=== PATIENT | female | born 1980 | race Caucasian/White ===

== ENCOUNTER 2017-03-06 12:36 | Emergency (ER) | payer BC, MEDICAID, OTHER ==
[~2017-03-06] VITALS: Ht 162.6 cm; Wt 45.1 kg
[2017-03-06] MEDS ORDERED: ACET50TA PO (12:51)
[2017-03-06] MEDS ORDERED: NS 1,000 ML IV ONE ×2 (13:15→14:00)
[2017-03-06] MEDS ORDERED: ONDANSETRON 4MG/2ML VIAL (J2405) IV ONE (13:15)
[2017-03-06] MEDS ORDERED: MORPHINE 2 MG/ML 1ML SYRINGE IV PRN (13:15)
[2017-03-06] MEDS ORDERED: METOCLOPRAMIDE INJ 10MG/2ML VIAL (J2765) IV ONE (13:15)
[2017-03-06 13:17] LABS: BASO # 0.1 K/mm3 (0.0-0.2); BASO % 0.4 % (0.0-1.0); EOS # 0.1 K/mm3 (0.0-0.50); EOS % 0.5 % (0.0-3.0); LARGE UNSTAINED CELL # 0.4 K/mm3 (0.0-0.4); LARGE UNSTAINED CELL % 2.3 % (0.0-4.0); LYMPH # 0.6 K/mm3 (1.5-4.5); LYMPH % 3.2 % (24.0-44.0); MEAN CORPUSCULAR HEMOGLOBIN 24.2 pg (27.0-33.0); MEAN CORPUSCULAR HGB CONC 30.5 g/dl (32.0-36.5); MEAN CORPUSCULAR VOLUME 79.4 fl (80.0-96.0); MONO # 1.1 K/mm3 (0.0-0.8); NEUTROPHILS # 16.1 K/mm3 (1.8-7.7); NEUTROPHILS % 87.7 % (36.0-66.0); PLATELET COUNT, AUTOMATED 594 k/mm3 (150-450); RED CELL DISTRIBUTION WIDTH 16.8 % (11.5-14.5); WHITE BLOOD COUNT 18.4 K/mm3 (4.0-10.0)
[2017-03-06 13:29] LABS: CONTROL LINE HCG INT CTR LINE PRESENT
[2017-03-06 13:37] LABS: ALBUMIN 2.9 GM/DL (3.2-5.2); ALBUMIN/GLOBULIN RATIO 0.49 (1.00-1.93); ALKALINE PHOSPHATASE 442 U/L (45-117); ALT/SGPT 23 U/L (12-78); ANION GAP 9 MEQ/L (8-16); AST/SGOT 19 U/L (15-37); BILIRUBIN,DIRECT 0.2 MG/DL (0.0-0.2); BILIRUBIN,TOTAL 0.7 MG/DL (0.2-1.0); BLOOD UREA NITROGEN 17 MG/DL (7-18); CALCIUM LEVEL 8.7 MG/DL (8.5-10.1); CARBON DIOXIDE LEVEL 27 MEQ/L (21-32); CHLORIDE LEVEL 94 MEQ/L (98-107); CREATININE FOR GFR 0.93 MG/DL (0.55-1.02); GLOMERULAR FILTRATION RATE > 60.0 (>60); GLUCOSE, FASTING 124 MG/DL (70-105); POTASSIUM SERUM 3.7 MEQ/L (3.5-5.1); SODIUM LEVEL 130 MEQ/L (136-145); TOTAL PROTEIN 8.8 GM/DL (6.4-8.2)
[2017-03-06] MEDS ORDERED: GASTROGRAFIN SOLUTION 30ML (Q9963) As Ordered ONE (13:50)
[2017-03-06] MEDS ORDERED: GASTROGRAFIN SOLUTION 30ML (Q9963) PO ONE ×2 (14:00→14:30)
[2017-03-06] MEDS ORDERED: ISOVUE-370 76% 100ML VIAL (Q9967) As Ordered ONE (15:08)
--- NOTE | 2017-03-06 15:39 | REP ---
Clinical: Abdominal pain with history of recent surgery for ulcerative colitis. Technique: Axial contrast enhanced images from the lung bases to the pubic symphysis using oral and 100 ml Isovue 370 intravenous contrast material with coronal and sagittal re-formations. Comparison: None. Findings: The patient is status post bowel resection and ostomy via the right anterior abdominal wall. A small amount of diffuse ascites is identified along with inflammatory stranding in the left upper quadrant. Scattered areas of mural thickening may reflect underlying reactive enteritis. No evidence for bowel obstruction or pneumoperitoneum. No drainable discrete collection/abscess identified. Minimal stranding in the anterior subcutaneous tissues at the surgical site likely within normal limits. Liver, spleen, pancreas, bilateral adrenal glands and kidneys are normal. The patient is status post cholecystectomy. Pelvis demonstrates normal bladder and uterus/adnexa. No free air. No obvious adenopathy. Vasculature is normal. Surrounding musculoskeletal structures are intact. Lung bases are clear. Impression: Small amount of diffuse ascites and inflammatory stranding in the left upper quadrant may reflect normal postoperative changes. Mild enteritis cannot be excluded. No discrete drainable collection/abscess identified. Signed by Francisco Arana MD 03/06/2017 03:31 P
[2017-03-06] MEDS ORDERED: PROMETHAZINE INJ 25 MG/ML VIAL (J2550) IV ONE (16:30)
[2017-03-06] MEDS ORDERED: REGL10TA6 PO (16:47)
[2017-03-06] MEDS ORDERED: ZOFR4TAB3 PO (16:51)
[2017-03-06] MEDS ORDERED: ONDANSETRON 4 MG ORAL DISINTEGRATING TAB (S0181) PO ONE ×2 (17:15→17:30)
[2017-03-06] MEDS ORDERED: METOCLOPRAMIDE 10 MG TAB PO ONE (17:15)
[2017-03-06] MEDS: METOCLOPRAMIDE 10 MG TAB PO ONE ×2 (17:23→17:30)
[2017-03-06 17:47] VITALS: BP 110/68
[2017-03-07] MEDS ORDERED: D 50CAP PO (14:53)
== END 2017-03-06 17:48 | disposition home or self-care (01) ==
LOC: M ED 12:36
DX: R11.2 Nausea with vomiting, unspecified (principal); G44.89 Other headache syndrome; Z90.49 Acquired absence of other specified parts of digestive tract; Z88.0 Allergy status to penicillin

== ENCOUNTER 2017-03-07 14:32 | Inpatient (IN) | payer MEDICAID, OTHER ==
[~2017-03-07] VITALS: Ht 162.6 cm; Wt 48.8 kg
[~2017-03-07 14:32] MED LIST: ACET50TA PO; REGL10TA6 PO; ZOFR4TAB3 PO
[2017-03-07] MEDS ORDERED: D 50CAP PO (14:53)
[2017-03-07] MEDS ORDERED: NS 1,000 ML IV ONE ×2 (15:15→16:30)
[2017-03-07] MEDS ORDERED: ONDANSETRON 4MG/2ML VIAL (J2405) IV ONE ×2 (15:15→18:15)
[2017-03-07 15:46] LABS: BASO # 0.1 K/mm3 (0.0-0.2); BASO % 0.6 % (0.0-1.0); EOS % 0.2 % (0.0-3.0); LARGE UNSTAINED CELL # 0.5 K/mm3 (0.0-0.4); LARGE UNSTAINED CELL % 2.3 % (0.0-4.0); LYMPH # 0.7 K/mm3 (1.5-4.5); LYMPH % 2.9 % (24.0-44.0); MEAN CORPUSCULAR HEMOGLOBIN 24.3 pg (27.0-33.0); MEAN CORPUSCULAR HGB CONC 30.3 g/dl (32.0-36.5); MEAN CORPUSCULAR VOLUME 80.1 fl (80.0-96.0); MONO # 1.5 K/mm3 (0.0-0.8); MONO % 6.5 % (0.0-5.0); NEUTROPHILS # 19.6 K/mm3 (1.8-7.7); NEUTROPHILS % 87.5 % (36.0-66.0); PLATELET COUNT, AUTOMATED 626 k/mm3 (150-450); RED CELL DISTRIBUTION WIDTH 16.8 % (11.5-14.5); WHITE BLOOD COUNT 22.5 K/mm3 (4.0-10.0)
[2017-03-07 15:47] LABS: ADD MORPHOLOGY? YES
[2017-03-07 16:08] LABS: ANISOCYTOSIS 1+; HYPOCHROMASIA 2+; MICROCYTOSIS 1+
[2017-03-07 16:12] LABS: ALBUMIN 2.6 GM/DL (3.2-5.2); ALBUMIN/GLOBULIN RATIO 0.44 (1.00-1.93); ALKALINE PHOSPHATASE 377 U/L (45-117); ALT/SGPT 26 U/L (12-78); AMYLASE 16 U/L (25-115); ANION GAP 9 MEQ/L (8-16); AST/SGOT 30 U/L (15-37); BILIRUBIN,DIRECT 0.1 MG/DL (0.0-0.2); BILIRUBIN,TOTAL 0.5 MG/DL (0.2-1.0); BLOOD UREA NITROGEN 12 MG/DL (7-18); CALCIUM LEVEL 8.7 MG/DL (8.5-10.1); CARBON DIOXIDE LEVEL 25 MEQ/L (21-32); CHLORIDE LEVEL 95 MEQ/L (98-107); CREATININE FOR GFR 0.92 MG/DL (0.55-1.02); GLOMERULAR FILTRATION RATE > 60.0 (>60); GLUCOSE, FASTING 104 MG/DL (70-105); POTASSIUM SERUM 3.6 MEQ/L (3.5-5.1); SODIUM LEVEL 129 MEQ/L (136-145); TOTAL PROTEIN 8.5 GM/DL (6.4-8.2)
[2017-03-07] MEDS ORDERED: ACETAMINOPHEN 325 MG TAB PO ONE (16:30)
[2017-03-07] MEDS ORDERED: metroNIDAZOLE 500 MG in APPROPRIATE DILUENT 1 EA IV ONE (16:30)
[2017-03-07] MEDS ORDERED: CIPROFLOXACIN 400 MG in APPROPRIATE DILUENT 1 EA IV ONE (16:30)
[2017-03-07] MEDS ORDERED: MORPHINE 2 MG/ML 1ML SYRINGE As Ordered ONE (18:07)
[2017-03-07] MEDS ORDERED: MORPHINE 2 MG/ML 1ML SYRINGE IV ONE (18:15)
[2017-03-07] MEDS: KCL 40MEQ in NS 1000ML 1,000 ML IV SCH (20:14)
[2017-03-07 20:45] VITALS: BP 105/57
[2017-03-07] MEDS: ACETAMINOPHEN TAB 650MG DOSE (2X325MG) PO PRN (21:25)
[2017-03-07] MEDS: ONDANSETRON 4MG/2ML VIAL (J2405) IV PRN (22:10)
--- NOTE | 2017-03-07 22:38 | HPE ---
DATE OF ADMISSION: 03/07/2017 CHIEF COMPLAINT: Abdominal pain. HISTORY OF PRESENT ILLNESS: She is a 36-year-old female with past medical history of ulcerative colitis status post recent colon resection, entire colon, presenting with abdominal pain. Her symptoms started yesterday with abdominal pain, nausea, vomiting, diarrhea, as well as low grade fever. She came to the emergency department (ED) to be evaluated and sent home. She returns again today with persistent and worsening symptoms. Her WBC had gone up to 22 from 18 and she also had an elevation in lactic acid so she was admitted for further management. REVIEW OF SYSTEMS: Ten point systems assessed and negative except as stated above in history of present illness (HPI). PAST MEDICAL HISTORY: Migraines. PAST SURGICAL HISTORY: Cholecystectomy and colectomy. FAMILY HISTORY: Denies history of colon cancers. SOCIAL HISTORY: Never smoked. Does not drink alcohol or use illicit drugs. Lives alone. Is on public assistance. Not . Has no children. ALLERGIES TO MEDICATIONS: PENICILLIN, reaction hives. MEDICATIONS: - vitamin D3 5000 units once a day PHYSICAL EXAMINATION: VITAL SIGNS: Blood pressure 105/57, pulse 110, respiratory rate 18, oxygen saturation 99% on room air, temperature 102.1 degrees Fahrenheit. GENERAL: She is alert, oriented to person, place, time, and circumstance. In mild distress due to her abdominal pain. HEENT: Pupils are equal, round, and reactive to light. Extraocular muscles are intact. Anicteric sclerae. Mucous membranes moist. She has poor dentition, missing a few of upper and lower teeth. NECK: Supple. Nontender to palpation. No palpable adenopathy. CARDIOVASCULAR SYSTEM: S1, S2 present. Heart rate is regular. No audible murmur. RESPIRATORY SYSTEM: Lungs clear to auscultation bilaterally. GASTROINTESTINAL (GI): Abdomen is soft. There is lower abdominal tenderness to palpation. She has a positive colostomy with viable stump. There is also greenish watery stool in the bag. She has normal bowel sounds. No rebound. No guarding. MUSCULOSKELETAL SYSTEM: No edema, cyanosis, or calf tenderness. SKIN: Warm and dry, is cyanotic, without rash. NEUROLOGIC: Nonfocal findings. LABORATORY DATA: Hematology: White blood cell count 22.5, hemoglobin 10, hematocrit 33, platelets 626, neutrophil of 87.5. Sodium 129, potassium 3.6, chloride 95, bicarbonate 25, anion gap 9, BUN 12, creatinine 0.9, glucose 104, lactic acid 2.8 (1st), 2.4 (2nd), calcium 8.1, total bilirubin 0.5, direct bilirubin 0.1, AST 30, ALT 26, alkaline phosphatase 377, total protein 8.5, albumin 2.6, amylase 16, lipase 58. IMAGING STUDIES: CT scan of the renal pelvis revealed a small amount of diffuse ascites and inflammatory stranding in the left upper quadrant which may reflect normal postoperative changes. Mild enteritis cannot be excluded. IMPRESSION: Includes: 1. Ulcerative colitis. 2. Enteritis. 3. Ascites. 4. Hyponatremia. 5. Anemia with thrombocytosis. PLAN: Patient is admitted to medical/surgical floor. Continued on antibiotics Cipro and Flagyl. IV fluid with saline. She is on a liquid diet. Consulted infectious disease specialist, Dr. Cortes. Will also continue Zofran and Tylenol. Two cultures have been sent and they are pending. Please monitor complete blood count (CBC) for the anemia, however it is likely secondary to blood loss from surgery. Deep venous thrombosis (DVT) prophylaxis. Ambulation encouraged.
[2017-03-08] VITALS: BP 99/52
[2017-03-08] MEDS: MORPHINE 2 MG/ML 1ML SYRINGE IV PRN ×3 (02:24→20:12)
[2017-03-08 04:00] VITALS: BP 100/54
[2017-03-08] MEDS: KCL 40MEQ in NS 1000ML 1,000 ML IV SCH ×3 (04:24→20:11)
[2017-03-08] MEDS ORDERED: MORPHINE 2 MG/ML 1ML SYRINGE IV ONE (06:00)
[2017-03-08 06:41] LABS: BASO % 0.3 % (0.0-1.0); EOS % 0.3 % (0.0-3.0); LARGE UNSTAINED CELL # 0.5 K/mm3 (0.0-0.4); LARGE UNSTAINED CELL % 3.3 % (0.0-4.0); LYMPH # 0.8 K/mm3 (1.5-4.5); LYMPH % 4.7 % (24.0-44.0); MEAN CORPUSCULAR VOLUME 80.1 fl (80.0-96.0); MONO # 1.6 K/mm3 (0.0-0.8); MONO % 9.5 % (0.0-5.0); NEUTROPHILS # 13.3 K/mm3 (1.8-7.7); NEUTROPHILS % 81.9 % (36.0-66.0); RED CELL DISTRIBUTION WIDTH 16.8 % (11.5-14.5); WHITE BLOOD COUNT 16.2 K/mm3 (4.0-10.0)
[2017-03-08 06:50] LABS: PLATELET COUNT, AUTOMATED 525 k/mm3 (150-450)
[2017-03-08 06:56] LABS: ALBUMIN/GLOBULIN RATIO 0.49 (1.00-1.93); ALKALINE PHOSPHATASE 284 U/L (45-117); ALT/SGPT 16 U/L (12-78); ANION GAP 7 MEQ/L (8-16); AST/SGOT 14 U/L (15-37); BILIRUBIN,TOTAL 0.4 MG/DL (0.2-1.0); BLOOD UREA NITROGEN 8 MG/DL (7-18); CALCIUM LEVEL 7.9 MG/DL (8.5-10.1); CARBON DIOXIDE LEVEL 24 MEQ/L (21-32); CHLORIDE LEVEL 107 MEQ/L (98-107); GLOMERULAR FILTRATION RATE > 60.0 (>60); GLUCOSE, FASTING 95 MG/DL (70-105); POTASSIUM SERUM 4.5 MEQ/L (3.5-5.1); SODIUM LEVEL 138 MEQ/L (136-145); TOTAL PROTEIN 6.1 GM/DL (6.4-8.2)
[2017-03-08 08:40] VITALS: BP 102/52
[2017-03-08] MEDS: ACETAMINOPHEN TAB 650MG DOSE (2X325MG) PO PRN ×3 (08:43→20:13)
[2017-03-08] MEDS: metroNIDAZOLE 500 MG in APPROPRIATE DILUENT 1 EA IV SCH (08:43)
[2017-03-08] MEDS: CIPROFLOXACIN 200 MG in APPROPRIATE DILUENT 1 EA IV SCH ×2 (10:21→20:43)
[2017-03-08 12:00] VITALS: BP 97/52
[2017-03-08 15:00] VITALS: BP 108/57
[2017-03-08] MEDS: ONDANSETRON 4MG/2ML VIAL (J2405) IV PRN (15:52)
[2017-03-08 20:00] VITALS: BP 125/65
--- NOTE | 2017-03-08 21:10 | IPN ---
DATE: 03/08/2017 SUBJECTIVE: Patient seen and examined in the room today. Patient continues to complain about abdominal pain. Nausea and vomiting have been improving with the medications. Patient continues to have intermittent fevers. OBJECTIVE: VITAL SIGNS: Temperature is 98, pulse is 99, respiration rate is 16, blood pressure is 97/52, pulse oximetry is 99% in room air. GENERAL: Mild to moderate distress secondary to abdominal pain. HEENT: Poor dentition. Multiple missing teeth. CARDIOVASCULAR: Positive S1, S2, regular rate. LUNGS: Clear to auscultation bilaterally. ABDOMEN: Ostomy located in the right mid abdomen. Bowel sounds present. Abdomen soft. MUSCULOSKELETAL: No edema. No sign of cyanosis. LABORATORY DATA: WBC is 16.2, hemoglobin 8.2, hematocrit 27.5, platelet count is 525. Sodium is 138, potassium 4.5, chloride is 107, carbon dioxide 24, BUN 8, creatinine 0.6, GFR greater than 60, fasting glucose 95, calcium 7.9. Total bilirubin is 0.4, AST 14, ALT 16, alkaline phosphatase is 284, total protein 6.1, albumin 2. ASSESSMENT AND PLAN: 1. Severe abdominal pain with nausea, vomiting, diarrhea, and fever. It is suspected has endocolitis. Patient is on Cipro and Flagyl. With empiric antibiotics patient did have improvement of the white blood cells (WBC). History of ulcerative colitis status post colectomy with ostomy. Surgery was just performed in the middle of February in [place]. 2. History of migraine headache. 3. Hyponatremia, improved. 4. Anemia. Patient had a drop of hemoglobin and hematocrit since admission. Will follow with stool occult blood. Currently patient is on intravenous (IV) fluid. 5. Deep vein thrombosis (DVT) prophylaxis. For DVT prophylaxis, patient is on thromboembolic deterrents (TEDs) and sequential compression devices.
[2017-03-09] VITALS: BP 111/56
[2017-03-09] MEDS: MORPHINE 2 MG/ML 1ML SYRINGE IV PRN ×3 (00:17→09:41)
[2017-03-09] MEDS: KCL 40MEQ in NS 1000ML 1,000 ML IV SCH (05:26)
[2017-03-09 07:42] LABS: BASO # 0.1 K/mm3 (0.0-0.2); BASO % 0.2 % (0.0-1.0); EOS % 0.1 % (0.0-3.0); LARGE UNSTAINED CELL # 0.5 K/mm3 (0.0-0.4); LYMPH # 0.8 K/mm3 (1.5-4.5); LYMPH % 2.9 % (24.0-44.0); MEAN CORPUSCULAR HEMOGLOBIN 24.1 pg (27.0-33.0); MEAN CORPUSCULAR HGB CONC 29.7 g/dl (32.0-36.5); MEAN CORPUSCULAR VOLUME 80.9 fl (80.0-96.0); MONO # 2.1 K/mm3 (0.0-0.8); MONO % 8.1 % (0.0-5.0); NEUTROPHILS # 22.9 K/mm3 (1.8-7.7); NEUTROPHILS % 86.7 % (36.0-66.0); PLATELET COUNT, AUTOMATED 584 k/mm3 (150-450); WHITE BLOOD COUNT 26.4 K/mm3 (4.0-10.0)
[2017-03-09 07:55] LABS: ALBUMIN 1.7 GM/DL (3.2-5.2); ALKALINE PHOSPHATASE 227 U/L (45-117); ALT/SGPT 18 U/L (12-78); ANION GAP 7 MEQ/L (8-16); AST/SGOT 14 U/L (15-37); BILIRUBIN,TOTAL 0.5 MG/DL (0.2-1.0); BLOOD UREA NITROGEN 4 MG/DL (7-18); CALCIUM LEVEL 7.8 MG/DL (8.5-10.1); CARBON DIOXIDE LEVEL 24 MEQ/L (21-32); CHLORIDE LEVEL 106 MEQ/L (98-107); CREATININE FOR GFR 0.63 MG/DL (0.55-1.02); GLOMERULAR FILTRATION RATE > 60.0 (>60); GLUCOSE, FASTING 82 MG/DL (70-105); POTASSIUM SERUM 5.1 MEQ/L (3.5-5.1); SODIUM LEVEL 137 MEQ/L (136-145); TOTAL PROTEIN 5.9 GM/DL (6.4-8.2)
[2017-03-09 08:00] VITALS: BP 113/62
[2017-03-09 08:08] LABS: ADD MORPHOLOGY? YES
[2017-03-09] MEDS: ONDANSETRON 4MG/2ML VIAL (J2405) IV PRN (08:20)
[2017-03-09] MEDS: CIPROFLOXACIN 200 MG in APPROPRIATE DILUENT 1 EA IV SCH (08:51)
[2017-03-09] MEDS: metroNIDAZOLE 500 MG in APPROPRIATE DILUENT 1 EA IV SCH (08:51)
[2017-03-09] MEDS: ACETAMINOPHEN TAB 650MG DOSE (2X325MG) PO PRN (08:52)
[2017-03-09 08:57] LABS: HYPOCHROMASIA 2+; OVALOCYTES 1+; POLYCHROMASIA 1+
[2017-03-09] MEDS ORDERED: METOCLOPRAMIDE INJ 10MG/2ML VIAL (J2765) IV PRN (11:00)
[2017-03-09] MEDS ORDERED: GASTROGRAFIN SOLUTION 30ML PO ONE (11:30)
[2017-03-09] MEDS ORDERED: GASTROGRAFIN SOLUTION 30ML (Q9963) PO ONE (12:00)
[2017-03-09] MEDS ORDERED: ISOVUE-370 76% 100ML VIAL (Q9967) As Ordered ONE (13:15)
--- NOTE | 2017-03-09 13:59 | REP ---
Clinical: Severe abdominal pain with recent colectomy. Technique: Axial contrast enhanced images from the lung bases to the pubic symphysis using 100 ml Isovue 370 intravenous contrast material with coronal and sagittal re-formations. Comparison: 03/06/2017. Findings: There is a tiny focus of free air in the right pericolic gutter (image 72) which is nonspecific and possibly related to postsurgical change. There is increased ascites within the abdomen and pelvis as well as diffusely dilated loops of bowel with mural thickening suggesting underlying obstruction and enteritis. The small bowel extending to the ostomy in the right mid abdomen is collapsed and the exact site of transition zone cannot be identified. There is an area of fluid and gas within the left mid to lower abdomen which is highly suspicious for extraluminal fluid collection and possible abscess (images 93 - 107). These findings may be secondary to dehiscence at the site of anastomosis or perforation. Further evaluation is significantly limited by the lack of intraluminal contrast. Trace right basilar atelectasis and small pleural reaction. Fatty infiltration to the liver. Spleen, pancreas, bilateral adrenal glands and kidneys are relatively normal. Abdominal aorta is unremarkable. Musculoskeletal structures appear intact. Impression: 1. Suspected extraluminal fluid with gas in the left mid to lower abdomen as well as diffuse ascites. Findings may reflect perforation or dehiscence at the site of anastomosis. 2. Dilated loops of bowel with mural thickening may reflect a secondary enteritis. Signed by Francisco Arana MD 03/09/2017 01:51 P
[2017-03-09 16:25] VITALS: BP 98/57
[2017-03-09] MEDS ORDERED: ACETAMINOPHEN 650 MG SUPP PR ONE (17:00)
--- NOTE | 2017-03-13 20:52 | DSES ---
DATE OF ADMISSION: 03/07/2017 DATE OF DISCHARGE: 03/09/2017 CONSULTANTS: General surgery, Dr. Gandhi PROCEDURES: None. ADMISSION/DISCHARGE DIAGNOSES: 1. Severe abdominal pain with nausea, vomiting, diarrhea and fever. 2. Bowel perforation from colectomy and anastomosis site adhesions. 3. Abdominal ascites. 4. Anemia. 5. History of ulcerative colitis, status post colectomy with ostomy. HOSPITALIZATION COURSE: The patient is a 36-year-old female who presented to [facility] on 03/07/[address] of the abdomen was performed and was initially suggestive of inflammatory/infectious changes. The patient was started on Cipro and Flagyl since admission. Cultures and GI panel was obtained, which came back negative. With medical management, the patient did not have any significant improvement of abdominal pain. Repeated CT scan of the abdomen was performed, which showed findings suggestive of perforation or dehiscence at the site of the anastomosis. The colorectal surgeon at [facility] was contacted and urgent transfer was set up. OBJECTIVE: VITAL SIGNS: Temperature is 102.2, pulse is 131, respirations 20, blood pressure is 98/57, pulse oximetry 99% on room air. LABORATORY DATA: WBC 26.4, hemoglobin 8.5, hematocrit 28.6, platelet count is 584. Sodium is 137, potassium 5.1, chloride 106, carbon dioxide 24, BUN 4, creatinine 0.63, GFR greater than 60, fasting glucose is 82, calcium 7.8, total bilirubin is 0.5, AST 14, ALT 18, alkaline phosphatase is 227. C-reactive protein 14, total protein 5.7, albumin 1.7. Blood cultures negative after 5 days times two sets. The patient's GI panel is negative. IMAGING STUDIES: CT of the abdomen and pelvis on 03/09/2017 showed perforation or dehiscence at the site of the anastomosis. There is suspected extra lumen of fluid with gas in the left mid to lower abdomen, as well as diffuse ascites. Dilated loop of bowel with mural thickening, may reflect secondary enteritis. DISCHARGE INSTRUCTIONS: The patient has urgent transfer to [facility] for colorectal surgeon, who was contacted and accepting physician is Dr. Christianson. Discharge condition: Guarded. Discharge time: Greater than 30 minutes.
== END 2017-03-09 16:55 | disposition other institution (70) | DRG 252 ==
LOC: M ED 15:35 → M ED INP 18:09 → M PED 20:35
PROVIDERS: ADMIT Hospitalist; ATTEND Internal Medicine
DX: K91.89 Other postprocedural complications and disorders of digestive system (principal); K63.1 Perforation of intestine (nontraumatic); T81.32XA Disruption of internal operation (surgical) wound, not elsewhere classified, initial encounter; R18.8 Other ascites; E87.1 Hypo-osmolality and hyponatremia; D47.3 Essential (hemorrhagic) thrombocythemia; D64.9 Anemia, unspecified; Z90.49 Acquired absence of other specified parts of digestive tract; Z93.3 Colostomy status; G43.909 Migraine, unspecified, not intractable, without status migrainosus; Y83.6 Removal of other organ (partial) (total) as the cause of abnormal reaction of the patient, or of later complication, without mention of misadventure at the time of the procedure

== ENCOUNTER 2017-04-28 18:13 | Emergency (ER) | payer OTHER ==
[~2017-04-28] VITALS: Ht 162.6 cm; Wt 45.0 kg
[~2017-04-28 18:13] MED LIST changes: +D 50CAP PO
[2017-04-28 18:14] VITALS: BP 111/73
== END 2017-04-28 19:14 | disposition home or self-care (01) ==
LOC: M ED 18:13
DX: K94.19 Other complications of enterostomy (principal); K51.90 Ulcerative colitis, unspecified, without complications; Z88.0 Allergy status to penicillin

== ENCOUNTER → 2018-07-26 | Outpatient (CLI) | payer OTHER ==
[~2018-07-26] MED LIST changes: -ACET50TA PO; -D 50CAP PO; +GASTROGRAFIN SOLUTION 30ML (Q9963) As Ordered; -REGL10TA6 PO; -ZOFR4TAB3 PO
== END ==
LOC: M RAD 12:18
DX: R10.9 Unspecified abdominal pain (principal)
CPT/HCPCS: Q9963

== ENCOUNTER 2022-07-10 13:17 | Emergency (ER) | payer OTHER ==
[~2022-07-10] VITALS: Ht 160 cm; Wt 46.8 kg
[~2022-07-10 13:17] MED LIST changes: +D 50CAP PO; -GASTROGRAFIN SOLUTION 30ML (Q9963) As Ordered; +MAPA500T2 PO; +REGL10TA6 PO; +ZOFR4TAB14 PO
[2022-07-10] MEDS ORDERED: NS 1,000 ML IV ONE (13:40)
[2022-07-10] MEDS ORDERED: IBUPROFEN 400MG TAB PO ONE (13:50)
[2022-07-10 14:00] LABS: MEAN CORPUSCULAR HEMOGLOBIN 33.5 pg (27.0-33.0); MEAN CORPUSCULAR HGB CONC 32.3 g/dl (32.0-36.5); MEAN CORPUSCULAR VOLUME 103.7 fl (80.0-96.0); PLATELET COUNT, AUTOMATED 235 10^3/uL (150-450); RED BLOOD COUNT 1.91 10^6/uL (4.00-5.40)
[2022-07-10 14:13] LABS: HEMATOCRIT 19.8 % (36.0-47.0); WHITE BLOOD COUNT 58.6 10^3/uL (4.0-10.0)
[2022-07-10 14:14] LABS: HEMOGLOBIN 6.4 g/dl (12.0-15.5)
[2022-07-10 14:29] LABS: INR 1.18; PROTHROMBIN TIME 15.2 SECONDS (12.5-14.5)
[2022-07-10 14:30] LABS: PARTIAL THROMBOPLASTIN TIME 26.3 SECONDS (24.8-34.2)
[2022-07-10] MEDS ORDERED: cefTRIAXone SOD 2 GM in D5W MINI-BAG PLUS 50 ML IV ONE (14:35)
[2022-07-10] MEDS ORDERED: NS 500 ML IV ONE (14:35)
[2022-07-10 14:41] LABS: RSV AMPLIFICATION NEGATIVE (NEGATIVE)
[2022-07-10 14:47] LABS: ANISOCYTOSIS 2+; BASOPHILS 1 % (0-1); EOSINOPHILS 3 % (0-3); LYMPHOCYTES 8 % (16-44); METAMYELOCYTES 3 % (0-0); MONOCYTES 2 % (0-5); MYELOCYTES 4 % (0-0); NEUTROPHILS 62 % (28-66); PLATELET ESTIMATE NORMAL (NORMAL)
[2022-07-10 14:49] LABS: ALBUMIN 1.6 GM/DL (3.2-5.2); BILIRUBIN,DIRECT 13.5 MG/DL (0.0-0.2); BILIRUBIN,TOTAL 15.3 MG/DL (0.2-1.0); CALCIUM LEVEL 7.9 MG/DL (8.5-10.1); CREATININE FOR GFR 1.99 MG/DL (0.55-1.30); GLOMERULAR FILTRATION RATE 29.3 (>58); POLYCHROMASIA 2+; POTASSIUM SERUM 5.4 MEQ/L (3.5-5.1); STOMATOCYTES 1+; TOTAL PROTEIN 7.6 GM/DL (6.4-8.2)
[2022-07-10] MEDS ORDERED: PANTOPRAZOLE 40MG VIAL IV ONE (15:20)
[2022-07-10 16:38] VITALS: BP 94/53
[2022-07-10] MEDS ORDERED: ONDANSETRON 4MG 2ML VIAL As Ordered ONE (16:53)
[2022-07-10] MEDS ORDERED: ONDANSETRON 4MG 2ML VIAL IV ONE (16:55)
[2022-07-10 16:56] VITALS: BP 90/55
[2022-07-10 17:15] VITALS: BP 92/51
== END 2022-07-11 07:16 | disposition home or self-care (01) ==
LOC: M ED 13:17
DX: K83.01 Primary sclerosing cholangitis (principal); A41.9 Sepsis, unspecified organism; R91.8 Other nonspecific abnormal finding of lung field; G43.909 Migraine, unspecified, not intractable, without status migrainosus; K51.90 Ulcerative colitis, unspecified, without complications; Z88.0 Allergy status to penicillin; Z90.49 Acquired absence of other specified parts of digestive tract; R16.1 Splenomegaly, not elsewhere classified
CPT/HCPCS: 36430; 71045; 71250; 74176; 80048; 80076; 83605; 83690; 85025; 85610; 85730; 86850; 86900; 86901; 86920; 87040; 87631; 93041; 96361; 96365; 96375; 99285; C9113; J0696; J2405; P9016